=== PATIENT | female | born 1960 | race Asian ===

== ENCOUNTER 2019-01-14 10:05 | Emergency (ER) | payer SELFPAY ==
--- NOTE | 2019-01-14 10:07 | PDOC ---
History of Present Illness - General Chief Complaint: Blood Pressure Problem Stated Complaint: BLOOD P[RESSURE Time Seen by Provider: 01/14/19 10:07 History Source: Patient Exam Limitations: No Limitations - History of Present Illness Initial Comments: 01/14/19 10:07 Ms. Oliver is a 58 yo F who presents ambulatory to the ER due to elevated blood pressure. Pt reports that her blood pressure si typically 120/70 on her current regimen For the past 2 days, her blood pressure has been fluctuating up and has been as high as 170s/90s which is atypical for her The last time this happened was 3 months ago when she was seen in the [facility] ER Per patient, work up was negative, she was told that her PMD needed to adjust her medications As a result, PMD increased Losartan to BID She was seen by her PMD in December everything was well (per patient) Over the past 2 days, she has noted feeling flushed and sweaty No chest pain No shortness of breath No palpitation Currently, pt has a headache located on the right side of her head (began at 10 am) No visual changes, no weakness or numbness PMH: HTN, HLD PSH: C section Meds: Nifedipine 30, Losartan 25 BID ALL: NKDA Social: denies alcohol, drug, cigarette use FH: cad 65, 3 brothers [place] ( before age 50) ROS: GENERAL/CONSTITUTIONAL: No: fever, chills, weakness, loss of appetite. HEAD, EYES, EARS, NOSE AND THROAT: No: change in vision CARDIOVASCULAR: Yes: flushed No: chest pain, lightheadedness, palpitations, syncope RESPIRATORY: No: cough, shortness of breath, wheezing GASTROINTESTINAL: No: nausea, vomiting, diarrhea, abdominal pain GENITOURINARY: No: dysuria, hematuria, frequency, urgency MUSCULOSKELETAL: No: back pain, neck pain, joint pain, muscle swelling or pain SKIN: No: lesions, pallor, rash or easy bruising. NEUROLOGIC: Yes: mild headache No: headache, vertigo, paresthesias, weakness ENDOCRINE: No: unexplained weight gain or loss HEMATOLOGIC/LYMPHATIC: No: anemia, easy bleeding, swelling nodes. PE: GENERAL: The patient is in no acute distress. HEAD: Normal with no signs of trauma. EYES: PERRLA, EOMI, sclera anicteric, conjunctiva clear. ENT: Ears normal, nares patent, oropharynx clear without exudates. Moist mucous membranes. NECK: Normal range of motion, supple without lymphadenopathy, JVD LUNGS: Breath sounds equal, clear to auscultation bilaterally. No wheezes, and no crackles. HEART:Regular rate and rhythm, normal S1 and S2 without murmur, rub or gallop. ABDOMEN: Soft, nontender, normoactive bowel sounds. No guarding, no rebound. No masses palpable. EXTREMITIES: Normal range of motion, no edema. NEUROLOGICAL: Cranial nerves II through XII grossly intact. Normal speech. No focal neurological deficits. MUSCULOSKELETAL: Back non-tender to palpation, no CVA tenderness SKIN: Warm, Dry, normal turgor, no rashes or lesions noted. 01/14/19 10:20 01/14/19 10:22 01/14/19 10:55 01/14/19 11:15 Past History - Past Medical History Allergies/Adverse Reactions: Allergies Allergy/AdvReac Type Severity Reaction Status Date / Time No Known Allergies Allergy Unverified 01/14/19 10:13 Home Medications: Ambulatory Orders Losartan Potassium 25 mg PO BID 01/14/19 Nifedipine [Procardia Xl] 30 mg PO DAILY 01/14/19 ED Treatment Course - LABORATORY CBC & Chemistry Diagram: 01/14/19 10:57 01/14/19 10:57 Medical Decision Making - Medical Decision Making 01/14/19 10:21 Patient presents to the ER (for the 2nd time) due to elevated blood pressure The patient has not been able to follow up with her PMD BP - 163/91 01/14/19 11:03 Twelve-lead EKG was performed and reviewed by me. There is normal sinus rhythm with a normal rate. The axis is normal. The intervals are normal. There are no ST or T wave abnormalities. Impression: Normal twelve-lead EKG 01/14/19 11:26 Laboratory Tests 01/14/19 01/14/19 10:29 10:57 Sodium 138 Potassium 3.9 Chloride 105 Carbon Dioxide 23 BUN 8.0 Creatinine 0.6 Random Glucose 108 H Creatine Kinase 86 Troponin I < 0.03 01/14/19 11:45 Laboratory Tests 01/14/19 10:57 WBC 11.2 H Hgb 13.4 Hct 43.7 Plt Count 293 Call placed to pt PMD 01/14/19 11:50 Will discharge to home Pt will follow up with PMD Return to the ER for any other concerns or complaints 01/14/19 12:28 Repeat BP 115/74 PMD called No response Pt asked to follow up within 2-3 days *DC/Admit/Observation/Transfer Diagnosis at time of Disposition: Hypertension Qualifiers: Hypertension type: unspecified Qualified Code(s): I10 - Essential (primary) hypertension - Discharge Dispostion Disposition: HOME Condition at time of disposition: Stable Decision to Admit order: No - Referrals - Patient Instructions Printed Discharge Instructions: DI for High Blood Pressure, How to Monitor Your Blood Pressure at Home, Recommendations to Help Prevent High Blood Pressure Additional Instructions: Netta Lopez Thank you for coming in to the ER today Please be sure to follow up with your primary care physician as soon as possible (within 2-3 days) Your blood pressure was elevated but returned to normal by the time you were discharged Please continue to take your home medications as prescribed Please return to the ER for any other concerns or complaints I will wait to hear from your doctor prior to prescribing any additional medications Please call your doctor today - Post Discharge Activity
[2019-01-14 10:19] VITALS: BMI 27.8
[2019-01-14 10:59] LABS: EOS % 0.1 % (0-4.5)
[2019-01-14] MEDS ORDERED: ACETAMINOPHEN 500 MG TABLET (FP) PO ONE (11:02)
[2019-01-14] MEDS ORDERED: ACETAMINOPHEN 500 MG TABLET (FP) ONE (11:05)
[2019-01-14 11:13] LABS: ALBUMIN 4.4 g/dl (3.4-5.0); BILIRUBIN,TOTAL 0.5 mg/dl (0.2-1); CALCIUM 8.9 mg/dl (8.5-10); CREATININE 0.6 mg/dl (0.55-1.3); POTASSIUM 3.9 mmol/L (3.5-5.1)
[2019-01-14 11:17] VITALS: PULSE 91; TEMP 98.2
[2019-01-14 11:38] LABS: BASO % 0.1 % (0-2.0); HEMATOCRIT 43.7 % (32.4-45.2); HEMOGLOBIN 13.4 GM/dl (10.7-15.3); LYMPH % 11.4 % (8-40); MCH 21.4 pg (25.7-33.7); MCHC 30.6 g/dl (32.0-36.0); MEAN PLT VOLUME 8.7 fl (7.5-11.1); MONO % 4.2 % (3.8-10.2); NEUT % 84.2 % (42.8-82.8); PLATELET COUNT 293 K/MM3 (134-434); RBC 6.25 M/mm3 (3.60-5.2); RDW 14.7 % (11.6-15.6); WHITE BLOOD COUNT 11.2 K/mm3 (4.0-10.8)
[2019-01-14 12:28] VITALS: BP 115/74
--- NOTE | 2019-01-14 17:12 | EKG ---
Test Reason : Blood Pressure : / mmHG Vent. Rate : 098 BPM Atrial Rate : 098 BPM P-R Int : 164 ms QRS Dur : 084 ms QT Int : 344 ms P-R-T Axes : 055 -09 022 degrees QTc Int : 439 ms NORMAL SINUS RHYTHM NORMAL ECG NO PREVIOUS ECGS AVAILABLE Confirmed by LUIS F STATON MD ([id number]) on 01/14/2019 5:12:23 PM Referred By: MD LUCAS Confirmed By:LUIS F STATON MD
== END 2019-01-14 12:38 | disposition home or self-care (01) ==
LOC: FER 10:05
DX: I10 Essential (primary) hypertension (principal)
CPT/HCPCS: 36415; 80053; 82550; 84443; 84484; 85025; 93005; 99281-25